=== PATIENT | female | born 1945 | race Caucasian/White ===

== ENCOUNTER 2020-04-27 05:44 | Emergency (ER) | payer OTHER ==
[~2020-04-27] VITALS: Ht 165.1 cm; Wt 94.3 kg
--- NOTE | 2020-04-27 06:00 | NUR ---
patient came to er bed 10 c/o facial pain. patient states that she had tripped on the floor at home resulting her falling forward and hitting her head. denies loss of consciousness patient has a nose bridge abrasion, forehead bump w/ brusing. patient is aaox4. no sob .breathing evenly and unlabored on room air.
--- NOTE | 2020-04-27 06:20 | NUR ---
PT BROUGHT BY RADIOLOGY TO CT
--- NOTE | 2020-04-27 07:49 | NUR ---
Patient discharged to home in stable condition. Written and verbal after care instructions given. Patient verbalizes understanding of instruction.
[2020-04-27 07:50] VITALS: BP 138/81
== END 2020-04-27 07:51 | disposition home or self-care (01) ==
LOC: ER 05:50
DX: S02.2XXA Fracture of nasal bones, initial encounter for closed fracture (principal); S01.21XA Laceration without foreign body of nose, initial encounter; I50.9 Heart failure, unspecified; J44.9 Chronic obstructive pulmonary disease, unspecified; W18.39XA Other fall on same level, initial encounter; Y93.89 Activity, other specified; Y92.89 Other specified places as the place of occurrence of the external cause; Y99.8 Other external cause status
CPT/HCPCS: 12011; 70450; 70486; 99285; A6403

== ENCOUNTER 2021-01-22 10:40 | Emergency (ER) | payer OTHER ==
[~2021-01-22] VITALS: Ht 165.1 cm; Wt 89.4 kg
[~2021-01-22 10:40] MED LIST: CEPH500T PO
--- NOTE | 2021-01-22 10:52 | NUR ---
TO ER BED 3, C/O PAIN WHEN URINATING
[2021-01-22] MEDS ORDERED: CEPH500T PO (10:54)
--- NOTE | 2021-01-22 10:59 | NUR ---
UA SENT TO LAB.
[2021-01-22] MEDS ORDERED: PHENAZOPYRIDINE HCL 200 MG TABLET PO ONE (11:00)
[2021-01-22 11:02] LABS: BILIRUBIN,URINE Negative (NEGATIVE); COLOR,URINE YELLOW (YELLOW); LEUKOCYTE ESTERASE ,URINE Moderate (NEGATIVE); NITRITE, URINE Negative (NEGATIVE); PROTEIN,URINE Negative (NEGATIVE); UGLUCOSE Negative (NEGATIVE); UROBILINOGEN,URINE 0.2 EU/dL (0.2)
[2021-01-22] MEDS ORDERED: PHENAZOPYRIDINE HCL 200 MG TABLET ONE (11:04)
[2021-01-22 11:20] VITALS: BP 120/60
[2021-01-22 11:50] LABS: BACTERIA,URINE Few /HPF (None Seen); SQUAMOUS EPITHELIAL CELL,UR Rare /HPF (None Seen); WBC,URINE 51-80 /HPF (0-3)
[2021-01-22] MEDS ORDERED: PHEN-894 PO (11:53)
== END 2021-01-22 11:58 | disposition home or self-care (01) ==
LOC: ER 10:44
DX: N39.0 Urinary tract infection, site not specified (principal); I50.9 Heart failure, unspecified; J44.9 Chronic obstructive pulmonary disease, unspecified; Z79.899 Other long term (current) drug therapy
CPT/HCPCS: 81001; 87086-TC

== ENCOUNTER 2021-02-22 11:00 | Emergency (ER) | payer OTHER ==
[~2021-02-22] VITALS: Ht 167.6 cm; Wt 91.6 kg
[~2021-02-22 11:00] MED LIST changes: +PHEN-894 PO
--- NOTE | 2021-02-22 11:02 | NUR ---
patient bibdaughter c/o cough x 4 days. On room air, breathing evenly and unlabored. Connected to the monitor and pulse ox. Kept comfortable will continue to monitor accordingly.
[2021-02-22] MEDS ORDERED: UMEC62.5 INH (11:48)
[2021-02-22] MEDS ORDERED: AMIT25TA9 PO (11:48)
[2021-02-22] MEDS ORDERED: METO25TA4 PO (11:48)
[2021-02-22] MEDS ORDERED: FURO20TA4 PO (11:48)
[2021-02-22] MEDS ORDERED: LEVO112T7 PO (11:48)
[2021-02-22] MEDS ORDERED: SACU1TAB PO (11:48)
--- NOTE | 2021-02-22 11:48 | NUR ---
SEEN AND EXAMINED BY .
[2021-02-22] MEDS ORDERED: predniSONE 20 MG TABLET ONE (11:57)
--- NOTE | 2021-02-22 11:59 | NUR ---
CALLED RT FOR BREATHING TX.
[2021-02-22] MEDS ORDERED: ALBUTEROL FS 2.5 MG/3 ML VIAL.NEB NEB ONE (12:00)
[2021-02-22] MEDS ORDERED: IPRATROPIUM NEB FS 0.5 MG/2.5 ML AMPUL.NEB NEB ONE (12:00)
[2021-02-22] MEDS ORDERED: predniSONE 20 MG TABLET PO ONE (12:00)
--- NOTE | 2021-02-22 12:01 | NUR ---
REGIONAL CLIMATE CHANGE ANALYST AT BEDSIDE FOR XRAY
[2021-02-22] MEDS ORDERED: IPRATROPIUM NEB FS 0.5 MG/2.5 ML AMPUL.NEB ONE (12:06)
[2021-02-22] MEDS ORDERED: ALBUTEROL FS 2.5 MG/3 ML VIAL.NEB ONE (12:06)
[2021-02-22] MEDS ORDERED: IPRA3AMP23 IH (12:34)
[2021-02-22] MEDS ORDERED: NEBU-171 MC (12:34)
[2021-02-22] MEDS ORDERED: BENZ-13 PO (12:36)
[2021-02-22 13:00] VITALS: BP 128/77
--- NOTE | 2021-02-22 13:00 | NUR ---
Patient discharged to home in stable condition. Written and verbal after care instructions given. Patient verbalizes understanding of instruction.
== END 2021-02-22 13:00 | disposition home or self-care (01) ==
LOC: ER 11:03
DX: J44.1 Chronic obstructive pulmonary disease with (acute) exacerbation (principal); I11.0 Hypertensive heart disease with heart failure; I50.9 Heart failure, unspecified; Z79.899 Other long term (current) drug therapy
CPT/HCPCS: 71045; 93005; 94640; 99283; J7512

== ENCOUNTER 2022-02-27 14:56 | Emergency (ER) | payer OTHER ==
[~2022-02-27] VITALS: Ht 167.6 cm; Wt 87.1 kg
[~2022-02-27 14:56] MED LIST changes: +AMIT25TA9 PO; +BENZ-13 PO; -CEPH500T PO; +FURO20TA4 PO; +IPRA3AMP23 IH; +LEVO112T7 PO; +METO25TA4 PO; +NEBU-171 MC; +SACU1TAB PO; +UMEC62.5 INH
[2022-02-27] MEDS ORDERED: METF-442 PO (15:14)
[2022-02-27] MEDS ORDERED: ALBU90AE INH (15:14)
[2022-02-27] MEDS ORDERED: PANT40TA49 PO (15:14)
[2022-02-27] MEDS ORDERED: pilocarpine PO (15:23)
[2022-02-27] MEDS ORDERED: FURO-145 PO (15:23)
[2022-02-27] MEDS ORDERED: AMIT25TA9 PO (15:23)
[2022-02-27] MEDS ORDERED: PILO5TAB10 PO (15:25)
[2022-02-27] MEDS ORDERED: FLUT1BLS12 INH (15:25)
--- NOTE | 2022-02-27 15:29 | NUR ---
BIB DAUGHTER C/O COUGH AND CONGESTION, TESTED POSITIVE FOR COVID ON THURSDAY AND TESTED AGAIN TODAY AND IT WAS NEGATIVE. PT STATED SHE ISNT FEELING WELL AND HAS THROAT PAIN. PT HAS HX OF COPD AND CANCER. A&OX4. ATTACHED TO MONITORM VITALS ARE WITHIN NORMAL LIMITS. WARM BLNKAET PROVIDED FOR COMFORT. AWAITING MD BENAVIDES.
[2022-02-27] MEDS ORDERED: GUAIFENESIN/D-METHORPHAN HB 5 ML UDC PO ONE (15:30)
[2022-02-27] MEDS ORDERED: GUAIFENESIN/D-METHORPHAN HB 5 ML UDC ONE (15:46)
--- NOTE | 2022-02-27 15:59 | NUR ---
COVID AND RAPID FLU TEST COLLECTED AND SENT
[2022-02-27 16:03] LABS: BASOPHILS % (AUTO) 0.1 % (0.0-2.0); EOSINOPHILS % (AUTO) 0.2 % (0.0-6.0); HEMATOCRIT 34 % (33-45); HEMOGLOBIN 11.4 g/dL (11.5-14.8); LYMPHOCYTES # (AUTO) 0.7 K/uL (0.8-4.8); LYMPHOCYTES % (AUTO) 6.2 % (20.0-44.0); MEAN CORPUSCULAR HGB CONC 33 g/dl (31.0-36.0); MEAN CORPUSCULAR VOLUME 97 fL (82-100); MONOCYTES # (AUTO) 0.8 K/uL (0.1-1.30); MONOCYTES % (AUTO) 7.3 % (2.0-12.0); NEUTROPHILS % (AUTO) 86.2 % (43.0-81.0); PLATELET COUNT (AUTO) 248 K/uL (150-450); RED BLOOD CELL COUNT(AUTO) 3.55 MIL/uL (4.0-5.2); WHITE BLOOD COUNT (AUTO) 10.5 K/uL (4.3-11.0)
[2022-02-27 16:19] LABS: CALCIUM, SERUM 9.6 mg/dL (8.5-10.1); CARBON DIOXIDE 30 mmol/L (21-32); CHLORIDE 99 mmol/L (98-107); CREATININE 1.5 mg/dL (0.6-1.3); GLUCOSE 162 mg/dL (74-106); POTASSIUM 4.8 mmol/L (3.5-5.1); SODIUM SERUM 138 mmol/L (136-145); UREA NITROGEN, BLOOD 24 mg/dL (7-18)
[2022-02-27 16:33] LABS: ALANINE AMINOTRANSFERASE 34 U/L (12-78); ALBUMIN 3.8 g/dL (3.4-5.0); ALKALINE PHOSPHATASE 80 U/L (46-116); ASPARTATE AMINOTRANSFERASE 17 U/L (15-37); BILIRUBIN,DIRECT 0.1 mg/dL (0.0-0.2); BILIRUBIN,TOTAL 0.4 mg/dL (0.2-1.0); TOTAL PROTEIN, SERUM 7.2 g/dL (6.4-8.2)
[2022-02-27] MEDS ORDERED: DEXAMETHASONE SOLN 5 MG/5 ML UDC PO ONE (17:00)
[2022-02-27] MEDS ORDERED: IV NS 0.9% 2,000 ML IV ONE (17:00)
[2022-02-27] MEDS ORDERED: DEXAMETHASONE 4 MG TABLET ONE (17:44)
[2022-02-27] MEDS ORDERED: DEXAMETHASONE SOLN 5 MG/5 ML UDC ONE (17:47)
[2022-02-27] MEDS ORDERED: GUAI1TBM19 PO ×3 (18:40→18:56)
--- NOTE | 2022-02-27 19:09 | NUR ---
IV removed. Catheter intact and site benign. Pressure and 4x4 applied to site. No bleeding noted.Patient discharged to home in stable condition. Written and verbal after care instructions given. Patient verbalizes understanding of instruction.
[2022-02-27 19:10] VITALS: BP 112/62
== END 2022-02-27 19:11 | disposition home or self-care (01) ==
LOC: ER 14:59
DX: J44.0 Chronic obstructive pulmonary disease with (acute) lower respiratory infection (principal); J20.9 Acute bronchitis, unspecified; I50.9 Heart failure, unspecified; Z79.899 Other long term (current) drug therapy; Z20.822 Contact with and (suspected) exposure to COVID-19; Z86.16 Personal history of COVID-19
CPT/HCPCS: 99285; 96360; 71250; 87426; 93005; 87804; 85025; 80048; 80076; 36415; 84484; 85730; 83880; J7030; A6403; J8540; C9803